=== PATIENT | female | born 1970 | race Caucasian/White ===

== ENCOUNTER 2018-02-07 13:20 | Outpatient (CLI) | payer BC ==
--- NOTE | 2018-02-26 10:53 | Mammography Report ---
Reason: SCREENIN MAMMO Procedure Date: 02/07/2018 Accession Number: [id number] / [id number] Procedure: MGN - Screening Mammo Dig Bilat CPT Code: FULL RESULT: EXAM: Screening Mammo Dig Bilat DATE: 02/07/2018 1:43 PM CLINICAL HISTORY: Routine screening TECHNIQUE: Bilateral CC and MLO views were obtained. COMPARISON: 03/30/2014 FINDINGS: There are scattered fibroglandular densities. There has been no significant interval change. No suspicious masses, clustered microcalcifications, or regions of architectural distortion are identified. IMPRESSION: Benign findings RECOMMENDATION: Routine annual screening unless otherwise clinically indicated. BIRADS CATEGORY 2: Benign findings STANDARD QUALIFYING STATEMENTS: 1. This examination was reviewed with the aid of Computer-Aided Detection (CAD). 2. A negative or benign imaging report should not delay biopsy if clinically suspicious findings are present. Consider surgical consultation if warrented. More than 5% of cancers are not identified by imaging. 3. Dense breasts may obscure an underlying neoplasm.
== END 2018-02-07 13:21 | disposition home or self-care (01) ==
LOC: DI.N 13:20
DX: Z12.31 Encounter for screening mammogram for malignant neoplasm of breast (principal)
CPT/HCPCS: 77067

== ENCOUNTER 2020-04-08 10:52 | Outpatient (CLI) | payer BC ==
[2020-04-08 11:30] VITALS: BP 132/90
--- NOTE | 2020-04-08 11:30 | SLEEP CARE CONSULTATION ---
Information from patient questionnaire entered by Jenise Ruelas. I have reviewed and concur with the information entered by Jenise Ruelas. This document represents the service I personally performed and the decisions made by me, Brandee Beavers ARNP. History of Present Illness Service Date and Time: 04/08/2020 1052 Reason for Visit: New patient Chief Complaint: reports: Unrefreshed sleep, Snoring, Excessive daytime sleepiness, Observed pauses in breathing, Fatigue, Frequent awakenings at night Date of Onset: 6 months to a year Usual bedtime: 8-8:30 pm Time it takes to fall asleep: 10-20 minutes Snores at night: Yes Sleeps alone due to snoring: No Number of times waking at night: 2-4 Reasons for waking at night: reports: Snoring, Bathroom Toss, Turn, or Twitch while sleeping: No Recalls having dreams: Yes Usually gets out of bed at: 2:30-6:30 am; days off it is 0630 Feels refreshed in the morning: No Morning headache: Yes (5/7 days that last about 1-2 hours) Sleepy or fatigued during the day: Yes Ever fallen asleep while driving: No Takes day naps: Yes (2-3 times a week, 30 minutes to 1 hour) Dreams during day naps: No Prior sleep studies: No Additional HPI information: I had the pleasure of seeing ANGELINA BARRON today regarding the possibility of her having a sleep disorder. Her current complaints are snoring, frequent night awakenings, unrefreshed sleep, excessive daytime sleepiness and fatigue. She saw her PCP and they discussed her sleeping and snoring. She has a very loud snore but her still sleeps in the same room. She denies gasping for air of choking but states that sometimes she wakes up at night and feels she can't quite fill lungs with air. She states this happens on average about 1-2 times a night. She states she can sit down on her couch and if there is nothing to do she will fall asleep. She states her parents both snored but they had no diagnosis for sleep apnea. She is not feeling rested when she gets up in the morning and is always fatigued. Her is being treated for sleep apnea. - Parasomnia Symptoms Ever been unable to move upon waking from sleep: No Walks in sleep: No Talks in sleep: Yes Ever acted out dreams in sleep: No Ever felt weak in the knees when startled or emotional: No Bothered by creepy, crawly, restless sensations in legs: No Problems with memory or concentration: Yes (has a poor memory; concentration in afternoon is hard) Subjective Initial Serena Sleepiness Scale score: 12 (in 2020) Social History The patient's occupation is a [employer]. Patient is and lives in [place]. Have you smoked in the past 12 months: No Cigarettes per day (20/pack): 10 Years of smokin Quit date: 2001 Smoking Pack Years: 8.0 Alcohol use: No Caffeine use: Yes Caffeine amount and frequency: tea, twice a day Family History Family history of sleep disordered breathing: No Family Hx Sleep Apnea: Mother: Snoring, Father: Snoring, Grandparent: Snoring Allergies and Home Medications Drug allergies reviewed: Yes (NKDA) Home medication list reviewed: Yes Allergy and home medication list: multivitamin ibuprofen, as needed Review of Systems Weight gain over past 5 years: 20 Cardiovascular: denies: high blood pressure Gastrointestinal: reports: heartburn Neurological: reports: headaches. denies: head trauma Psychiatric: denies: anxiety, depression, mood disorder, claustrophobia Ear/Nose/Throat: reports: nasal congestion, sinus problems, wisdom teeth removed. denies: injury to nose, tonsillectomy Immunologic: reports: sneezing, allergies to food or environment (seasonal) Physical Exam Blood Pressure: 132/90 Cuff size: large Heart Rate: 93 O2 Saturation: 99 Height: 5 ft 5 in Weight: 278 lb Body Mass Index: 46.2 BMI Classification: Morbidly Obese Neck circumference: 16.25 (inches) Nostrils: patent to airflow Mouth and throat: narrow oropharynx Hard palate: normal Uvula visualization: 25% Mallampati Class III Tongue: enlarged in size with teeth [place] on lateral edges Tonsils: 2+ Chin and jaw: Micrognathia Neck: normal w/o lymphadenopathy or thyromegaly Heart: regular rate and rhythm Lungs: clear bilaterally Impression and Plan 1. Suspected Obstructive Sleep Apnea-Hypopnea Syndrome, as suggested by a history of loud and irregular snoring, observed cessation of breath while asleep, morning headache, frequent awakening during the night, unrefreshed sleep, cognitive impairment, and excessive daytime sleepiness. Narrow oropharynx and obesity are common predisposing factors for obstructive sleep apnea-hypopnea syndrome. I recommend proceeding to polysomnography to confirm the diagnosis and to assess severity. If the patient has significant sleep disordered breathing, a manual CPAP titration study will also be performed to find the optimal treatment pressure. I informed the patient of what the sleep studies involve and after some discussion, obtained agreement to proceed. The pathophysiology of obstructive sleep apnea-hypopnea syndrome was discussed with the patient and health risks of cardiovascular and cerebrovascular disease if not treated. AAS brochure for obstructive sleep apnea-hypopnea syndrome given and reviewed. 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 Patient agreed to plan. * Schedule polysomnography +- manual CPAP titration study and return in 1-2 weeks after the study to discuss result and initiate therapy. * Avoid long distance driving or driving when feeling sleepy. * Avoid sedative and muscle relaxant around bedtime. * Attempt to lose weight. * Review instructions provided by trained office staff on how to prepare for the sleep study. * Return for follow-up after sleep study completed. Counseling Topics: Weight loss health impact Visit Type: In Office Time Spent with Patient (minutes): 30 Provider Statement: I spent 100% of the Face to Face Visit with the patient with greater than 50% spent counseling the patient and coordination of care.
== END 2020-04-08 10:53 | disposition home or self-care (01) ==
LOC: SC 10:52
PROVIDERS: ATTEND Nurse Practitioner Family
DX: G47.10 Hypersomnia, unspecified (principal); R41.89 Other symptoms and signs involving cognitive functions and awareness; G47.8 Other sleep disorders; R51.9 Headache, unspecified; R06.81 Apnea, not elsewhere classified; R06.83 Snoring; E66.01 Morbid (severe) obesity due to excess calories; Z68.42 Body mass index [BMI] 45.0-49.9, adult
CPT/HCPCS: 99203; 99212

== ENCOUNTER 2020-05-05 13:56 | Outpatient (CLI) | payer BC | END 2020-05-05 13:57 | disposition home or self-care (01) | LOC: SC 13:56 | PROVIDERS: ATTEND Nurse Practitioner Family | DX: G47.33 Obstructive sleep apnea (adult) (pediatric) (principal); R09.02 Hypoxemia; E66.9 Obesity, unspecified; Z68.42 Body mass index [BMI] 45.0-49.9, adult | CPT/HCPCS: 95806 ==

== ENCOUNTER 2020-05-12 14:20 | Outpatient (CLI) | payer BC ==
--- NOTE | 2020-05-12 14:59 | SLEEP CARE CONSULTATION ---
Information from patient questionnaire entered by Jyoti Woods. I have reviewed and concur with the information entered by Jyoti Woods. This document represents the service I personally performed and the decisions made by me, Brandee Beavers ARNP. History of Present Illness Service Date and Time: 05/12/2020 1420 Initial Dittmer Sleepiness Scale score: 12 (in 2020) Current Dittmer Sleepiness Scale score: 8 Additional HPI information: ANGELINA BARRON returns for follow up and results of the recently performed home sleep study. I explained the pathophysiology behind obstructive sleep apnea. We then spent quite a bit of time discussing different treatment options. For mild obstructive sleep apnea, surgery and oral appliance are alternatives to nasal CPAP therapy but in moderate or severe cases, nasal CPAP is the most effective and reliable treatment. Because apnea is primarily in supine position, then positional management therapy could be effective. Methods discussed such as positioning with pillows, using a T-shirt with tennis balls in the back, and shown commercial products that have a pillow format on back to prevent supine sleep. I reviewed the impact of weight changes on sleep apnea and strongly recommended losing weight. After some discussion, the patient opted to go with the nasal CPAP therapy. Nasal autoCPAP set at 4-15 cmH20 will be ordered with rationale explained. A manual titration study will be ordered if unable to find optimal pressure with office adjustments. I explained how CPAP machine works with sample devices Respironics Dreamstation and [employer] [id number] and what to expect when using the machine. Using CPAP every night in order to get used to it was emphasized. Patient advised to put CPAP mask on before getting into bed so as not to fall asleep without CPAP. To assist acclimation to CPAP use, it could also be used for a short time during day while reading or watching TV. The patient was instructed to call the CPAP supplier to discuss any mechanical problem that may occur. If the mask given is uncomfortable or is difficult to keep on through the night even with adjustment, contact the CPAP supplier as many will replace with another mask style if notified before 30 days. If snoring or perceives is not getting enough air or too much air from the machine, notify this office. [facility] patient education PAP tips reviewed and given to patient. Patient does not drink alcohol. Patient was cautioned about risks of drowsy driving until sleepiness symptoms resolve. Sleep Study - Results Type of Sleep Study: Home sleep study Prior sleep studies: No Polysomnography/Home Sleep Study results: Physician Impression: The quality of the study is good. The length of the study is adequate (> 240 minutes). Please also see the tabulated and graphic data. 1. Obstructive Sleep Apnea-Hypopnea (ICD-10 G47.33), moderate, with an AHI of 20.4/hr and marie SaO2 of 77%. During the study, the patient had 84 apneas (84 obstructive, 0 central, 0 mixed) and 105 hypopneas. The longest episode lasted 59.0 seconds. The patient did not sleep supine during this study (supine AHI was 0.0 and non-supine, 20.52). 2. Hypoxemia (ICD-10 R09.02), moderate, with the lowest oxygen saturation of 77 % and 38.9 minutes with SaO2 under 90%. Baseline oxygen saturation was normal (Average oxygen saturation was 93%). Allergies and Home Medications Home medication list reviewed: Yes (no changes) Review of Systems Review of systems same as previous: Yes (no changes) Physical Exam Heart Rate: 90 O2 Saturation: 95 Height: 5 ft 5 in Weight: 277 lb Body Mass Index: 46.0 BMI Classification: Morbidly Obese Impression and Plan 1. Obstructive Sleep Apnea-Hypopnea Syndrome, moderate, with lowest oxygen saturation of 77%. Obviously this is the cause of the patients symptoms of unrefreshed sleep, and excessive daytime sleepiness. Positive pressure therapy could benefit her overall health and reduce risks for cardiovascular or cerebrovascular adverse events. As mentioned above, the patient will be started on nasal autoCPAP therapy with pressure set at 4-15 cmH2O. A manual titration study will be completed if unable to find optimal treatment pressure with office adjustments. Compliance guidelines also reviewed. A copy of compliance guidelines will be given for reference at check out. Because the apnea is more severe supine, I instructed to avoid sleeping supine using pillow positioning until able to start CPAP use. 2. Hypoxemia, moderate, with the lowest oxygen saturation of 77 % and 38.9 minutes with SaO2 under 90%. Her baseline oxygen saturation was normal with an average oxygen saturation at 93%. * Nasal auto CPAP therapy, pressure at 4-15 cm H2O. * Attempt to lose weight. * Avoid alcohol consumption near bedtime. * Avoid supine sleep until using CPAP. * The patient is again cautioned about driving until sleepiness completely resolves. * Return one month after CPAP obtained. I will assess response to therapy and compliance at that time. Counseling Topics: Weight loss health impact Visit Type: In Office Time Spent with Patient (minutes): 20 Provider Statement: I spent 100% of the Face to Face Visit with the patient with greater than 50% spent counseling the patient and coordination of care.
== END 2020-05-12 14:21 | disposition home or self-care (01) ==
LOC: SC 14:20
PROVIDERS: ATTEND Nurse Practitioner Family
DX: G47.33 Obstructive sleep apnea (adult) (pediatric) (principal); R09.02 Hypoxemia; E66.01 Morbid (severe) obesity due to excess calories; Z68.42 Body mass index [BMI] 45.0-49.9, adult
CPT/HCPCS: 99212; 99213

== ENCOUNTER 2020-08-12 10:51 | Outpatient (CLI) | payer BC ==
--- NOTE | 2020-08-12 11:16 | SLEEP CARE CONSULTATION ---
Information from patient questionnaire entered by Jenise Ruelas. I have reviewed and concur with the information entered by Jenise Ruelas. This document represents the service I personally performed and the decisions made by , Brandee Beavers ARNP. History of Present Illness Service Date and Time: 08/12/2020 1051 Previous diagnosis: Moderate, Obstructive Sleep Apnea-Hypopnea Syndrome AHI: 20.4 (in 2020) Reason for follow up: first compliance Equipment type: CPAP Equipment obtained from: [facility] (got initial supplies) Mask style: Nasal Backup mask available: No (will keep old mask when replaced) Last cushion change: 1-2 months Prior sleep studies: Yes Year and Where: 2020 - [facility] Type of Sleep Study: Home sleep study HPI additional information: ANGELINA BARRON was diagnosed to have moderate, AHI 20.4, obstructive sleep apnea- hypopnea syndrome and returned today for CPAP therapy first compliance follow- up. CPAP Compliance Data - Data Reviewed with Patient Average duration of nightly device use: 5 hr 57 min Compliance rate %: 90 Current pressure setting (cmH2O): 4-15 (median 6.4, avg 10.8, max 11.7) Humidity settin Average residual AHI: 0.2 Subjective Patient concerns: denies: aerophagia, mask discomfort, air blowing in eyes, mask leak noise, condensation in mask/hose, nasal congestion, dry mouth, nose, throat, epistaxis, other Observed to snore while using device: No Current pressure setting perceived as: comfortable On therapy, patient: reports: sleeping better, awakening more refreshed, being more awake and alert during the day, more rested overall, other (no morning headaches). denies: drowsiness while driving Initial Lincoln Sleepiness Scale score: 12 (in 2020) Current Lincoln Sleepiness Scale score: 6 Allergies and Home Medications Home medication list reviewed: Yes (no changes) Review of Systems Review of systems same as previous: Yes (no changes) Physical Exam Heart Rate: 97 O2 Saturation: 98 Height: 5 ft 5 in Weight: 279 lb Body Mass Index: 46.4 BMI Classification: Morbidly Obese Impression and Plan 1. Obstructive Sleep Apnea-Hypopnea Syndrome, moderate, with good treatment compliance and excellent apnea control. On CPAP therapy, the patient has better sleep quality and is more rested overall. The patients pressure will be changed to autoCPAP 10-12 cmH20 to reflect pressure being used by patient. Patient advised to contact me if pressure change is uncomfortable so that it can be adjusted. Goals for apnea control discussed. Patient has no concerns or issues with CPAP use. She is very happy that she is no longer having headaches on a daily basis in the mornings. She has good control of her apneas and feels the pressure is comfortable. I will have her follow-up in about 1 to 2 months for pressure change. She voiced understanding and agreement to plan of care. Patient's apnea severity and rationale for treatment to reduce apnea, improve sleep quality and reduce cardiovascular and cerebrovascular events was reviewed. * Change auto CPAP pressure to 10-12 cmH2O * Notify me if snoring with mask or feeling that the pressure is too much or too little * Attempt to lose weight * Call this office if any problems using CPAP * Return for follow up in 1-2 months, or sooner if concerns arise Counseling Topics: Spare mask, Weight loss health impact Visit Type: In Office Time Spent with Patient (minutes): 14 Provider Statement: I spent 100% of the Face to Face Visit with the patient with greater than 50% spent counseling the patient and coordination of care.
== END 2020-08-12 10:52 | disposition home or self-care (01) ==
LOC: SC 10:51
PROVIDERS: ATTEND Nurse Practitioner Family
DX: G47.33 Obstructive sleep apnea (adult) (pediatric) (principal); E66.01 Morbid (severe) obesity due to excess calories; Z68.42 Body mass index [BMI] 45.0-49.9, adult
CPT/HCPCS: 99212

== ENCOUNTER 2020-09-23 10:49 | Outpatient (CLI) | payer BC ==
--- NOTE | 2020-09-23 11:02 | SLEEP CARE CONSULTATION ---
Information from patient questionnaire entered by Jenise Ruelas. I have reviewed and concur with the information entered by Jenise Ruelas. This document represents the service I personally performed and the decisions made by , Brandee Beavers ARNP. History of Present Illness Service Date and Time: 09/23/2020 1100 Previous diagnosis: Moderate, Obstructive Sleep Apnea-Hypopnea Syndrome AHI: 20.4 (in 2020) Reason for follow up: other (6 week with pressure change) Equipment type: CPAP Equipment obtained from: [facility] (getting supplies as needed) Mask style: Nasal Mask brand: Resmed Backup mask available: No (will keep old mask when replaced) Last cushion change: 2 weeks ago Prior sleep studies: Yes Year and Where: 2020 - [facility] Type of Sleep Study: Home sleep study HPI additional information: ANGELINA BARRON was diagnosed to have moderate, AHI 20.4, obstructive sleep apnea- hypopnea syndrome and returns via Telehealth visit today for CPAP therapy 6 week pressure change follow-up. CPAP Compliance Data - Data Reviewed with Patient Average duration of nightly device use: 5 hr 18 min Compliance rate %: 83 (42 days) Current pressure setting (cmH2O): 8-12 Humidity settin Average residual AHI: 0.1 Subjective Missed days of use due to: reports: illness (missed days due to a cold) Patient concerns: denies: aerophagia, mask discomfort, air blowing in eyes, mask leak noise, condensation in mask/hose, nasal congestion, dry mouth, nose, throat, epistaxis, other Observed to snore while using device: No Current pressure setting perceived as: comfortable On therapy, patient: reports: sleeping better, awakening more refreshed, being more awake and alert during the day, more rested overall. denies: drowsiness while driving Initial Marion Sleepiness Scale score: 12 (in 2020) Current Marion Sleepiness Scale score: 4 Allergies and Home Medications Home medication list reviewed: Yes (no changes) Review of Systems Review of systems same as previous: Yes (no changes) Physical Exam Vital signs obtained and entered by: Telehealth visit to reduce exposure during Covid pandemic Height: 5 ft 5 in Impression and Plan 1. Obstructive Sleep Apnea-Hypopnea Syndrome, moderate, with good treatment compliance and excellent apnea control. On CPAP therapy, the patient has better sleep quality and is more rested overall. Patient is satisfied with current treatment and pressure is comfortable. She has significant improvement of her sleep apnea. She occasionally will have some leak noises when she rubs her nose too hard during the night and dislodging her mask. She rarely feels that the extreme sleepiness where she needs to get a nap in the afternoon. She would get more sleep but has to get up early for her job. She feels she gets better quality sleep now using her CPAP machine. Patient's apnea severity and rationale for treatment to reduce apnea, improve sleep quality and reduce cardiovascular and cerebrovascular events was reviewed. Patient encouraged to try to lose weight. * Continue auto CPAP pressure at 8-12 cmH2O * Notify me if snoring with mask or feeling that the pressure is too much or too little * Attempt to lose weight * Call this office if any problems using CPAP * Return for follow up in 3 months, or sooner if concerns arise Counseling Topics: Spare mask, Weight loss health impact Visit Type: Telehealth Video Video Type: VSee Patient Location: Home Location of Provider: Office Patient agrees and consents to this telehealth visit type: Yes Patient agrees to have their insurance billed: Yes Time Spent with Patient (minutes): 13 Provider Statement: I spent 100% of the Telehealth Video Call with the patient with greater than 50% spent counseling the patient and coordination of care.
== END 2020-09-23 10:50 | disposition home or self-care (01) ==
LOC: SC 10:49
PROVIDERS: ATTEND Nurse Practitioner Family
DX: G47.33 Obstructive sleep apnea (adult) (pediatric) (principal)

== ENCOUNTER 2020-12-30 11:14 | Outpatient (CLI) | payer BC ==
--- NOTE | 2020-12-30 11:27 | SLEEP CARE CONSULTATION ---
Information from patient questionnaire entered by Alana Aguirre MA. I have reviewed and concur with the information entered by Alana Aguirre MA. This document represents the service I personally performed and the decisions made by , Brandee Beavers ARNP. History of Present Illness Service Date and Time: 12/30/2020 1100 Previous diagnosis: Moderate, Obstructive Sleep Apnea-Hypopnea Syndrome AHI: 20.4 (in 2020) Reason for follow up: three month Equipment type: CPAP Equipment obtained from: [facility] (getting supplies as needed; they are stopping CPAP supplies) Mask style: Nasal Backup mask available: No (will keep old mask when replaced) Last cushion change: last week Prior sleep studies: Yes Year and Where: 2020 - [facility] Type of Sleep Study: Home sleep study HPI additional information: ANGELINA BARRON was diagnosed to have moderate, AHI 20.4, obstructive sleep apnea- hypopnea syndrome and returns via video Telehealth visit today for CPAP therapy three month follow-up. Sleep Study - Results Type of Sleep Study: Home sleep study Prior sleep studies: Yes Year and Where: 2020 - [facility] CPAP Compliance Data - Data Reviewed with Patient Average duration of nightly device use: 5 hours 41 minutes Compliance rate %: 83 Current pressure setting (cmH2O): 8 - 12 Average residual AHI: 0.1 Central apnea: 0 Obstructive apnea: 0 Subjective Patient concerns: denies: aerophagia, mask discomfort, air blowing in eyes, mask leak noise, condensation in mask/hose, nasal congestion, dry mouth, nose, throat, epistaxis, other Observed to snore while using device: No Current pressure setting perceived as: comfortable On therapy, patient: reports: sleeping better, awakening more refreshed, being more awake and alert during the day, more rested overall. denies: drowsiness while driving Initial Holbrook Sleepiness Scale score: 12 (in 2020) Current [place]brook Sleepiness Scale score: 3 Allergies and Home Medications Home medication list reviewed: Yes (no changes) Review of Systems Review of systems same as previous: Yes (no changes) Physical Exam Vital signs obtained and entered by: Telehealth visit to reduce exposure during Covid pandemic Height: 5 ft 5 in Impression and Plan 1. Obstructive Sleep Apnea-Hypopnea Syndrome, moderate, with good treatment compliance and good apnea control. On CPAP therapy, the patient has better sleep quality and is more rested overall. Patient states that her DME company just informed her by letter that they will be no longer caring CPAP supplies. For patient supply concerns another DME can be used. I will have my hospice home care coordinator inform of DME options. A DWO prescription will then be made. Patient advised to contact this office if further supply problems. Patient's apnea severity and rationale for treatment to reduce apnea, improve sleep quality and reduce cardiovascular and cerebrovascular events was reviewed. Patient encouraged to try to lose weight. * Continue auto CPAP pressure at 8-12 cmH2O * Transfer DME * Notify me if snoring with mask or feeling that the pressure is too much or too little * Attempt to lose weight * Call this office if any problems using CPAP * Return for follow up in 6 months, or sooner if concerns arise Counseling Topics: Spare mask, Weight loss health impact Visit Type: Telehealth Video Patient Location: Home Location of Provider: Office Patient agrees and consents to this telehealth visit type: Yes Patient agrees to have their insurance billed: Yes Time Spent with Patient (minutes): 17 Provider Statement: I spent 100% of the Telehealth Video Call with the patient with greater than 50% spent counseling the patient and coordination of care.
== END 2020-12-30 11:15 | disposition home or self-care (01) ==
LOC: SC 11:14
PROVIDERS: ATTEND Nurse Practitioner Family
DX: G47.33 Obstructive sleep apnea (adult) (pediatric) (principal)